=== PATIENT | male | born 1990 | race Caucasian/White ===

== ENCOUNTER 2019-04-07 12:10 | Emergency (ER) | payer MEDICAID ==
[~2019-04-07] VITALS: Ht 177.8 cm; Wt 80.3 kg
--- NOTE | 2019-04-07 12:31 | NUR ---
came in for cough and fever since last night, to er bed 17, hooked to monitor, awaiting md alba.
--- NOTE | 2019-04-07 12:36 | NUR ---
elias adames at bedside
--- NOTE | 2019-04-07 12:48 | NUR ---
RAPID FLU SWAB SENT TO LAB
[2019-04-07] MEDS ORDERED: IBUPROFEN 600 MG TABLET PO ONE ×2 (13:00→13:06)
--- NOTE | 2019-04-07 14:24 | NUR ---
Patient discharged to home in stable condition. Written and verbal after care instructions given. Patient verbalizes understanding of instruction.
[2019-04-07 14:27] VITALS: BP 121/71
== END 2019-04-07 14:27 | disposition home or self-care (01) ==
LOC: ER 12:16
DX: J06.9 Acute upper respiratory infection, unspecified (principal); F17.200 Nicotine dependence, unspecified, uncomplicated

== ENCOUNTER 2020-02-17 17:10 | Emergency (ER) | payer MEDICAID, OTHER ==
[~2020-02-17] VITALS: Ht 172.7 cm; Wt 74.8 kg
[2020-02-17 19:00] VITALS: BP 148/76
[2020-02-17] MEDS ORDERED: DEXAMETHASONE SOD PHOSPHATE 4 MG/ML VIAL IM ONE (20:30)
[2020-02-17] MEDS ORDERED: KETOROLAC TROMETHAMINE INJ 60 MG/2 ML VIAL IM ONE ×2 (20:30→20:33)
[2020-02-17] MEDS ORDERED: DEXAMETHASONE SOD PHOSPHATE 10 MG/ML VIAL ONE (20:33)
== END 2020-02-17 20:53 | disposition home or self-care (01) ==
LOC: ER 17:14
DX: M54.42 Lumbago with sciatica, left side (principal); F17.200 Nicotine dependence, unspecified, uncomplicated
CPT/HCPCS: 96372 ×2; 99284; J1100; J1885